=== PATIENT | male | born 1990 | race Caucasian/White ===

== ENCOUNTER 2018-03-02 11:47 | Emergency (ER) | payer OTHER ==
[~2018-03-02] VITALS: Ht 162.6 cm; Wt 75.3 kg
[~2018-03-02 11:47] MED LIST: DOLOGESIC 500-1 EACH PO; LEVSIN/SL0.125 MG PO; NORFLEX100MG PO; PEPCID40 MG PO; ZOFRAN4 MG PO
== END 2018-03-02 16:07 | disposition home or self-care (01) ==
LOC: ER 11:47
DX: S43.491A Other sprain of right shoulder joint, initial encounter (principal); X50.0XXA Overexertion from strenuous movement or load, initial encounter; Y93.89 Activity, other specified; Y92.69 Other specified industrial and construction area as the place of occurrence of the external cause; Y99.8 Other external cause status

== ENCOUNTER 2018-06-01 16:58 | Emergency (ER) | payer OTHER ==
[~2018-06-01] VITALS: Ht 162.6 cm; Wt 81.2 kg
== END 2018-06-01 22:00 | disposition home or self-care (01) ==
LOC: ER 16:58
DX: N39.0 Urinary tract infection, site not specified (principal); M54.5 Low back pain

== ENCOUNTER 2019-04-03 14:46 | Emergency (ER) | payer OTHER ==
[~2019-04-03] VITALS: Ht 162.6 cm; Wt 78.9 kg
== END 2019-04-03 20:52 | disposition home or self-care (01) ==
LOC: ER 14:46
DX: R19.7 Diarrhea, unspecified (principal)

== ENCOUNTER 2019-11-11 09:31 | Emergency (ER) | payer OTHER ==
[~2019-11-11] VITALS: Ht 162.6 cm; Wt 79.8 kg
== END 2019-11-11 12:16 | disposition home or self-care (01) ==
LOC: ER 09:31
DX: K52.9 Noninfective gastroenteritis and colitis, unspecified (principal)

== ENCOUNTER 2020-04-01 23:54 | Emergency (ER) | payer OTHER ==
[~2020-04-01] VITALS: Ht 162.6 cm; Wt 79.8 kg
[2020-04-02] MEDS ORDERED: CEFUROXIME500 MG PO (04:35)
[2020-04-02] MEDS ORDERED: DOLOGESIC 500-1 EACH PO (04:35)
[2020-04-02] MEDS ORDERED: MIRALAX510 GM PO (04:36)
== END 2020-04-02 04:50 ==
LOC: ER 23:54
DX: R51 Headache (principal); K59.09 Other constipation